=== PATIENT | male | born 1965 | race Caucasian/White ===

== ENCOUNTER 2017-05-13 10:28 | Outpatient (CLI) ==
--- NOTE | 2017-05-13 11:26 | DI ---
EXAM: CHEST FRONTAL AND LATERAL VIEWS HISTORY: Bronchitis. COMPARISON: 08/08/2008 FINDINGS: Heart size remains normal. Mild hyperinflation. No acute infiltrates are seen. No vascul ar congestion. There is no consolidation, visible pleural fluid or pneumothorax. Bones reveal no acu te fracture. IMPRESSION: No acute cardiopulmonary process.
== END 2017-05-13 10:29 | disposition home or self-care (01) ==
LOC: RAD 10:28
PROVIDERS: ATTEND Family Medicine
DX: J40 Bronchitis, not specified as acute or chronic (principal); R91.1 Solitary pulmonary nodule

== ENCOUNTER 2017-08-25 08:15 | Outpatient (RCR) ==
--- NOTE | 2017-08-07 08:30 | RS.OPPTEV2 ---
Date of Note: 08/06/17 Visit #: 1 Date of Evaluation: 08/06/17 Payer Source: Insurance Surgery Performed?: Yes (R Rot cuff repair 06/04/17) Treatment Diagnosis: s/p rotator cuff repair with subacromial decompression History of Condition/Mechanism of Injury:: pt with degenerative rotator cuff tear s/p rotator cuff repair on 06/04/17 Prior Level of Function.....Patient was independent with: ADL's, Self Care, Work /Vocation, Ambulation/Mobility, Community Integration/Access Functional Limitations: Reaching, Pushing, Pulling, Lifting, Carrying Current Subjective/complaints:: pt states that he has been using his arm and lifting. Advised pt that he should not be lifting until MD approves. pt states he wants to get back to work as soon as possible. Treatment Side (optional): Right *Precautions: no lifting Medical History Medical History Comments:: back pain, anxiety Smoking Status: Unknown if ever smoked (pt uses smokeless tobacco) Hx Home Medications: hydrocodone, diclofenac Patient's Goals: return to work Pain Assessment - Pain Description Pain Location: R shld Pain Description: Throbbing, Aching Current Pain Intensity: 7/10 Worst Pain Intensity: 9/10 with ex Functional Outcome Measure UE Functional Index: 52 (35%) - G Codes & Severity Modifier G Codes & Modifier: n/a Source of G Code score: n/a Observation - Observation Posture: Forward Head, Rounded Shoulders Gait - Gait Pattern General Gait Pattern Observation: No Deviations/Normal General Range of Motion: BLE and LUE WFL's Muscle Strength: BLE 5/5. LUE 5/5. RUE elbow flex/ext atleast 3/5 as noted by ROM, Shoulder ROM: Left WFL's Shoulder Muscle Strength: Left WFL's - Right Shoulder ROM Right Shoulder Flexion: 100 Right Shoulder Abduction: 70 Right Shoulder External Rotation: 25 Right Shoulder ROM Limitations: Soft Tissue Tightness, Muscle Weakness, Pain - Right Shoulder Strength Right Shoulder Flexion: 3- Fair- Right Shoulder Extension: 3 Fair Right Shoulder Abduction: 3- Fair- Right Shoulder Adduction: 3- Fair- Right Shoulder External Rotation: 2+ Poor+ Palpation Palpation Findings: Tenderness (R shld), Muscle Guarding Sensation - Sensation Right Upper Extremity: Intact/Normal Left Upper Extremity: Intact/Normal Right Lower Extremity: Intact/Normal Left Lower Extremity: Intact/Normal Balance - Sitting Balance Static Sitting Balance: Normal Dynamic Sitting Balance: Normal - Standing Balance Static Standing Balance: Normal Dynamic Standing Balance: Normal - Heat/Cryotherapy Treatment: Cryotherapy Comments:: R shld Interventions - Exercise/Activities/Manual Therapy Exercises/Activities: pt performed pendulum ex, isometric flex, ext , abd, add x 5 reps. pt received AAROM R shld flex, abd, ER within pain free range Manual Therapy: n/a HOME EXERCISE PROGRAM: pt given written HEP including pendulum ex, isometric flex, ext, abd, add as well as AAROM shld flex - Charges Timed Code Treatment Minutes: 45 Total Treatment Time: 60 Procedures billed for this date of service:: eval low cold pack EVALUATION COMPLEXITY LEVEL EVALUATION COMPLEXITY LEVEL: HISTORY: Low (s/p rot cuff repair), EXAM OF BODY SYSTEMS: Medium (ROM, strength, pain), CLINICAL PRESENTATION: Medium, CLINICAL DECISION MAKING: Medium Assessment Assessment: pt presents with decreased R shld ROM and strength s/p rotator cuff repair approx 8 weeks ago. pt also continues with pain. pt has been using RUE to lift heavy objects and has not been doing any previous ex. Patient Education: Education of diagnosis, Home Exercise Program, Education of Plan of Care Rehab Potential: Good Problems/Comments: Instructed pt that per MD protocol he should not be lifting any heavy objects due to chance of disrupting rot cuff repair. Educated pt on healing process and protocol ex. Short Term Goals Goal #1: AAROM R shld flex 110 abd 85 Goal to be met by: 08/27/17 Goal #2: pt rate pain < 6/10 with activity Goal to be met by: 08/27/17 Spa Consultant Goals Goal #1: ROM R shld flex 150 abd 100 Goal to be met by: 09/17/17 Goal #2: pt rate pain <4/10 with activity Goal to be met by: 09/17/17 Goal #3: pt UE functional index score 65 Goal to be met by: 09/17/17 Goal #4: independent with HEP Goal to be met by: 09/17/17 Plan - Treatment to be Provided Procedures: Therapeutic Exercises, Therapeutic Activity, Manual Therapy, Patient Education Modalities: Electrical Stimulation, Ultrasound/Phonophoresis, Class IV Laser, Cryotherapy, Hot Packs - Treatment Plan Frequency: 2 X week Duration: 6 weeks ORDER # VISITS AND/OR THROUGH DATE: 09/17/17 - Treatment Code (1) S/P rotator cuff repair Code(s): Z98.89 - OTHER SPECIFIED POSTPROCEDURAL STATES * DO NOT USE * Comments: s/p R rotator cuff repair with subacromial decompression (2) Pain in joint, shoulder region Code(s): M25.519 - PAIN IN UNSPECIFIED SHOULDER Qualifiers: Laterality: right Qualified Code(s): M25.511 - Pain in right shoulder (3) Muscle weakness Code(s): M62.81 - MUSCLE WEAKNESS (GENERALIZED)
--- NOTE | 2017-08-08 14:06 | RS.OPPTDN ---
Subjective Date of Note: 08/08/17 Visit #: 2 Date of Evaluation: 08/06/17 Payer Source: Insurance Treatment Diagnosis: s/p rotator cuff repair with subacromial decompression Current Subjective/complaints:: Patient reports discomfort most of the time at the superior right shoulder joint and the mid upper arm. *Precautions: no lifting Pain Assessment - Pain Description Pain Location: Right superior shoulder joint and mid upper arm. Pain Description: Aching Current Pain Intensity: 6/10 - Treatment Modality: Ultrasound Parameters/Method Applied: [id number] at 1.5w/cm2 to the right shoulder joint and mid upper arm following exercise. Patient Position: Sitting - Heat/Cryotherapy Treatment: Cryotherapy ([id number] Ended with CP to right shoulder. Patient in sitting. ) Interventions - Exercise/Activities/Manual Therapy Exercises/Activities: PROM to right shoulder all direction in supine. Clasped hands for overhead flexion. Isometric shoulder flex, ext, abd, add, IR, ER, biceps and triceps. In sitting, isometrics and AA flexion, scap and short abd. Reviewed pendulum ex, and started self stretch flexion table slides. Extensive patient education of dx, joint mechanics, and safety precautions. Total minutes of Exercise: 42mins Manual Therapy: n/a HOME EXERCISE PROGRAM: pt given written HEP including pendulum ex, isometric flex, ext, abd, add as well as AAROM shld flex - Objective Findings Observations,measurements,etc.: Patients passive right shoulder flexion limited to approx 110 degrees and increased to approx 140 degrees following exercise. - Charges Timed Code Treatment Minutes: 54mins Total Treatment Time: 64mins Procedures billed for this date of service:: US, EX3 Assessment: Patient responded to treatment with an increase in PROM and seems to be motivated to work on HEP. Patient Education: Education of diagnosis, Body/Joint mechanics, Home Exercise Program, Home Safety, Activity Modification Patient demonstrates compliance with HEP?: Yes Short Term Goals Goal #1: AAROM R shld flex 110 abd 85 Goal to be met by: 08/27/17 Goal #2: pt rate pain < 6/10 with activity Goal to be met by: 08/27/17 Long-Term Goals Goal #1: ROM R shld flex 150 abd 100 Goal to be met by: 09/17/17 Progress towards goal: Progressing Goal #2: pt rate pain <4/10 with activity Goal to be met by: 09/17/17 Goal #3: pt UE functional index score 65 Goal to be met by: 09/17/17 Goal #4: independent with HEP Goal to be met by: 09/17/17 Progress towards goal: Progressing Plan PLAN OF CARE EXPIRES ON:: 09/17/17 ORDER # VISITS AND/OR THROUGH DATE: 09/17/17 PLAN: Progress exercise to increase ROM and gentle strengthening per protocol.
--- NOTE | 2017-08-13 10:28 | RS.OPPTDN ---
Subjective Date of Note: 08/13/17 Visit #: 3 Date of Evaluation: 08/06/17 Payer Source: Insurance Treatment Diagnosis: s/p rotator cuff repair with subacromial decompression Current Subjective/complaints:: Patient reports only mild increase in soreness following last exercise session. Reports he has had more discomfort the last few days, but may be over-doing activities at home. *Precautions: no lifting Pain Assessment - Pain Description Pain Location: Right shoulder and laterall upper arm Current Pain Intensity: 6-7/10 - Treatment Modality: Ultrasound Parameters/Method Applied: [id number] at 1.5w/cm2 to the right shoulder joint and upper arm following EX. patient in sitting. Patient Position: Sitting - Heat/Cryotherapy Treatment: Cryotherapy ([id number] to the right shoulder joint following EX and US. Patient in sitting. ) Interventions - Exercise/Activities/Manual Therapy Exercises/Activities: PROM to right shoulder all direction in supine. Isometric shoulder flex, ext, abd, add, IR, ER, biceps and triceps, multiple reps with UE at side. With right shoulder at 80 degrees abduction, isometric IR and ER. Clasped hands for limited AA flexion. AA shoulder/serratus punches. In sitting, isometrics and scapular retraction. AA right shoulder flexion limited to approx 90 degrees. Reviewed HEP including wall walking and self stretching in safe positions. Reviewed all patient education of dx, joint mechanics, and safety precautions. Total minutes of Exercise: 40mins Manual Therapy: n/a HOME EXERCISE PROGRAM: pt given written HEP including pendulum ex, isometric flex, ext, abd, add as well as AAROM shld flex - Objective Findings Observations,measurements,etc.: AA flexion in sitting to 90 degrees before elevating shoulder girdle. - Charges Timed Code Treatment Minutes: 52mins Total Treatment Time: 62mins Procedures billed for this date of service:: EX3, US Assessment: Patient able to tolerate increased PROM today. He is motivated to progress with HEP. Patient Education: Education of diagnosis, Body/Joint mechanics, Home Exercise Program, Home Safety, Activity Modification Comments: Reviewed again home safety and precautions for right shoulder. Patient demonstrates compliance with HEP?: Yes Short Term Goals Goal #1: AAROM R shld flex 110 abd 85 Goal to be met by: 08/27/17 Progress towards Goal:: Progressing Goal #2: pt rate pain < 6/10 with activity Goal to be met by: 08/27/17 Penitentiary Goals Goal #1: ROM R shld flex 150 abd 100 Goal to be met by: 09/17/17 Progress towards goal: Progressing Goal #2: pt rate pain <4/10 with activity Goal to be met by: 09/17/17 Goal #3: pt UE functional index score 65 Goal to be met by: 09/17/17 Goal #4: independent with HEP Goal to be met by: 09/17/17 Progress towards goal: Progressing Plan PLAN OF CARE EXPIRES ON:: 09/17/17 ORDER # VISITS AND/OR THROUGH DATE: 09/17/17 PLAN: Progress PROM and AA exercise to increase motion of the right shoulder joint.
--- NOTE | 2017-08-15 09:45 | RS.OPPTDN ---
Subjective Date of Note: 08/15/17 Visit #: 4 Date of Evaluation: 08/06/17 Payer Source: Insurance Treatment Diagnosis: s/p rotator cuff repair with subacromial decompression Current Subjective/complaints:: Patient reports improved moblity of the right shoulder joint this morning. States he is working on HEP. *Precautions: no lifting Pain Assessment - Pain Description Pain Location: Right shoulder Current Pain Intensity: moderate - Treatment Modality: Ultrasound Parameters/Method Applied: [id number] at 1.5w/cm2 to the right shoulder joint and upper arm. Patient Position: Sitting Interventions - Exercise/Activities/Manual Therapy Exercises/Activities: PROM to right shoulder all direction in supine. Isometric shoulder flex, ext, abd, add, IR, ER, biceps and triceps, multiple reps with UE at side. With right shoulder at 90 degrees flexion, isometric extension. Yellow theraband for short IR and ER. Yellow theraband for resisted wand shoulder extension and chest press. Added 3# to shoulder/serratus punches. In sitting, isometrics and scapular retraction. Wand for shoulder flexion limited to approx 90 degrees. Wall walking and self stretching at [employer]. Began overhead shoulder pulleys. Reviewed all patient education of dx, joint mechanics, and safety precautions. Total minutes of Exercise: 42mins Manual Therapy: n/a HOME EXERCISE PROGRAM: pt given written HEP including pendulum ex, isometric flex, ext, abd, add as well as AAROM shld flex - Charges Timed Code Treatment Minutes: 54mins Total Treatment Time: 55mins Procedures billed for this date of service:: EX3, US Assessment: Pateint progressing with PROM, AAROM, and light resistive exercise. Patient Education: Home Exercise Program Comments: Discussed shoulder pulleys and patient is planning to set them up at home. Patient demonstrates compliance with HEP?: Yes Short Term Goals Goal #1: AAROM R shld flex 110 abd 85 Goal to be met by: 08/27/17 Progress towards Goal:: Progressing Goal #2: pt rate pain < 6/10 with activity Goal to be met by: 08/27/17 Progress towards Goal:: Progressing Cook Vacuum Kettle Goals Goal #1: ROM R shld flex 150 abd 100 Goal to be met by: 09/17/17 Progress towards goal: Progressing Goal #2: pt rate pain <4/10 with activity Goal to be met by: 09/17/17 Goal #3: pt UE functional index score 65 Goal to be met by: 09/17/17 Goal #4: independent with HEP Goal to be met by: 09/17/17 Progress towards goal: Progressing Plan PLAN OF CARE EXPIRES ON:: 08/20/17 ORDER # VISITS AND/OR THROUGH DATE: 09/17/17 PLAN: Progress with ROM and gentle strengthening.
--- NOTE | 2017-08-20 13:58 | RS.OPPTDN ---
Subjective Date of Note: 08/20/17 Visit #: 5 Date of Evaluation: 08/06/17 Payer Source: Insurance Treatment Diagnosis: s/p rotator cuff repair with subacromial decompression Current Subjective/complaints:: Reports he is seeing improvement in ROM. Reports using right UE more at low level with elbow at side. Reports no lifting. *Precautions: no lifting Pain Assessment - Pain Description Pain Location: Right shoulder joint Current Pain Intensity: mild to mod - Treatment Modality: Ultrasound Parameters/Method Applied: [id number] at 1.5w/cm2 to the right shoulder joint and upper arm prior to EX today. Patient sitting. Patient Position: Sitting Interventions - Exercise/Activities/Manual Therapy Exercises/Activities: PROM to right shoulder all direction in supine. Isometric shoulder flex, ext, abd, add, IR, ER, biceps and triceps, multiple reps with UE at side. Right shoulder IR and ER with shoulder at differnet angles of abduction. 3# for serratus press. 1# and 2# dumbells for shoulder range flex/ ext. Yellow theraband for short IR and ER. Increased to red theraband for resisted right shoulder flexion anbd extension. In sitting, isometrics. Wand with red theraband for scapular retraction. Increased to 3# wand for shoulder flexion limited to approx 90 degrees. Ended with AAROM into flexion, scaption, and limited abduction. Discussed HEP and overhead shoulder pulleys. Reviewed all patient education of dx, joint mechanics, and safety precautions. Total minutes of Exercise: 45mins Manual Therapy: n/a HOME EXERCISE PROGRAM: pt given written HEP including pendulum ex, isometric flex, ext, abd, add as well as AAROM shld flex - Objective Findings Observations,measurements,etc.: Patient with passive flexion approx 150 degrees. Active right shoulder flexion 100 degrees (limited to one attempt for measurement). - Charges Timed Code Treatment Minutes: 55mins Total Treatment Time: 55mins Procedures billed for this date of service:: US, EX3 Assessment: Patient reporting consistent progress with motion and with pain reduction. Patient Education: Body/Joint mechanics, Home Exercise Program, Activity Modification Patient demonstrates compliance with HEP?: Yes Short Term Goals Goal #1: AAROM R shld flex 110 abd 85 Goal to be met by: 08/27/17 Progress towards Goal:: Progressing Goal #2: pt rate pain < 6/10 with activity Goal to be met by: 08/27/17 Progress towards Goal:: Progressing Universal Grinder Tool Goals Goal #1: ROM R shld flex 150 abd 100 Goal to be met by: 09/17/17 Progress towards goal: Progressing Goal #2: pt rate pain <4/10 with activity Goal to be met by: 09/17/17 Progress towards goal: Progressing Goal #3: pt UE functional index score 65 Goal to be met by: 09/17/17 Goal #4: independent with HEP Goal to be met by: 09/17/17 Progress towards goal: Progressing Plan PLAN OF CARE EXPIRES ON:: 09/17/17 ORDER # VISITS AND/OR THROUGH DATE: 09/17/17 PLAN: Continue with progression of exercise for ROM and gentle strengthening.
--- NOTE | 2017-08-22 11:19 | RS.OPPTDN ---
Subjective Date of Note: 08/22/17 Visit #: 6 Date of Evaluation: 08/06/17 Payer Source: Insurance Treatment Diagnosis: s/p rotator cuff repair with subacromial decompression Current Subjective/complaints:: Patient reports improvement in mobility and active motion below shoulder height. States he has set-up shoulder pulleys. *Precautions: no lifting Pain Assessment - Pain Description Pain Location: Right shoulder Pain Description: Aching Current Pain Intensity: mild to mod Other Comments regarding Pain:: Patient reports discomfort mainly at the anterior shoulder joint today. - Treatment Modality: Ultrasound Parameters/Method Applied: [id number] at 1.5w/cm2 to the right shoulder joint and along the biceps. Patient Position: Sitting Interventions - Exercise/Activities/Manual Therapy Exercises/Activities: PROM to right shoulder all direction in supine. Isometric shoulder flex, ext, abd, add, IR, ER, biceps and triceps, multiple reps with UE at side. Right shoulder IR and ER with shoulder at differnet angles of abduction. 3# for serratus press. 2# dumbells for shoulder short range flex and 1# for flex/ext from 70 to 90 degrees. Red theraband for short shoulder IR, ER, flexion, ext, serratus press, chest press, biceps, and triceps. In sitting, isometrics. 3# wand for flexion to shoulder height. Ended with Active and AAROM into flexion, scaption, and limited abduction. Discussed HEP, overhead shoulder pulleys, and safety with daily activities. Total minutes of Exercise: 42mins Manual Therapy: n/a HOME EXERCISE PROGRAM: pt given written HEP including pendulum ex, isometric flex, ext, abd, add as well as AAROM shld flex - Objective Findings Observations,measurements,etc.: Patient demos right shoulder flexion to approx 120-125 degrees with good stabiliztation of the scapula. AA flexion to 150 degrees. - Charges Timed Code Treatment Minutes: 54mins Total Treatment Time: 54mins Procedures billed for this date of service:: US, EX3 Assessment: Patient progressing with AROM in sitting. Patient Education: Body/Joint mechanics, Home Exercise Program, Activity Modification Patient demonstrates compliance with HEP?: Yes Short Term Goals Goal #1: AAROM R shld flex 110 abd 85 Goal to be met by: 08/27/17 Progress towards Goal:: Met Goal #2: pt rate pain < 6/10 with activity Goal to be met by: 08/27/17 Progress towards Goal:: Partially Met Contracts Analyst Goals Goal #1: ROM R shld flex 150 abd 100 Goal to be met by: 09/17/17 Progress towards goal: Progressing Goal #2: pt rate pain <4/10 with activity Goal to be met by: 09/17/17 Progress towards goal: Progressing Goal #3: pt UE functional index score 65 Goal to be met by: 09/17/17 Goal #4: independent with HEP Goal to be met by: 09/17/17 Progress towards goal: Partially Met (Independent with current HEP.) Plan PLAN OF CARE EXPIRES ON:: 09/17/17 ORDER # VISITS AND/OR THROUGH DATE: 09/17/17 PLAN: Progress per protocol.
--- NOTE | 2017-08-25 10:39 | RS.OPPTDN ---
Subjective Date of Note: 08/25/17 Visit #: 7 Date of Evaluation: 08/06/17 Payer Source: Insurance Treatment Diagnosis: s/p rotator cuff repair with subacromial decompression Current Subjective/complaints:: Patient reports increased soreness over weekend , but overall he continues to see improvement in moblity of the right shoulder joint. *Precautions: no lifting Pain Assessment - Pain Description Pain Location: Right shoulder and upper arm Pain Description: Aching Current Pain Intensity: mild - Treatment Modality: Ultrasound Parameters/Method Applied: [id number] at 1.5w/cm2 to the right [place] joint and upper arm prior to EX. Patient Position: Sitting Interventions - Exercise/Activities/Manual Therapy Exercises/Activities: PROM to right shoulder all direction in supine. Isometric shoulder flex, ext, abd, add, IR, ER, biceps and triceps, multiple reps with UE at side. Right shoulder IR and ER with shoulder at different angles of abduction. 3# for serratus press. Increased to 3# dumbells for shoulder short range flex. Red theraband for short shoulder IR, ER, flexion, ext, serratus press, chest press, biceps, and triceps. In standing, cuff series with 3#, 3 directions. In sitting, isometrics. 3# wand for flexion to shoulder height. Ended with Active and AAROM into flexion, scaption, and limited abduction. Isometric right shoulder extension. Discussed HEP, overhead shoulder pulleys, and safety with daily activities. Total minutes of Exercise: 44mins Manual Therapy: n/a HOME EXERCISE PROGRAM: pt given written HEP including pendulum ex, isometric flex, ext, abd, add as well as AAROM shld flex - Charges Timed Code Treatment Minutes: 54mins Total Treatment Time: 54mins Procedures billed for this date of service:: US, EX3 Assessment: Patient progressing with ROM and gentle strengthening. Patient Education: Home Exercise Program, Home Safety, Activity Modification Patient demonstrates compliance with HEP?: Yes Short Term Goals Goal #1: AAROM R shld flex 110 abd 85 Goal to be met by: 08/27/17 Progress towards Goal:: Met Goal #2: pt rate pain < 6/10 with activity Goal to be met by: 08/27/17 Progress towards Goal:: Partially Met Manager Of Sales Goals Goal #1: ROM R shld flex 150 abd 100 Goal to be met by: 09/17/17 Progress towards goal: Progressing Goal #2: pt rate pain <4/10 with activity Goal to be met by: 09/17/17 Progress towards goal: Progressing Goal #3: pt UE functional index score 65 Goal to be met by: 09/17/17 Goal #4: independent with HEP Goal to be met by: 09/17/17 Progress towards goal: Partially Met (Independent with current HEP.) Plan PLAN OF CARE EXPIRES ON:: 09/17/17 ORDER # VISITS AND/OR THROUGH DATE: 09/17/17 PLAN: Progress with ROM and strengtheing of the right UE.
== END 2017-08-27 ==
PROVIDERS: ATTEND Orthopaedic Surgery
DX: Z47.89 Encounter for other orthopedic aftercare (principal); M25.511 Pain in right shoulder; M62.81 Muscle weakness (generalized)

== ENCOUNTER 2017-09-03 08:15 | Outpatient (RCR) ==
--- NOTE | 2017-08-28 10:00 | RS.OPPTDN ---
Subjective Date of Note: 08/28/17 Visit #: 8 Date of Evaluation: 08/06/17 Payer Source: Insurance Treatment Diagnosis: s/p rotator cuff repair with subacromial decompression Current Subjective/complaints:: Reports pain in left shoulder increases with activity, but on average he has only mild discomfort. *Precautions: no lifting Pain Assessment - Pain Description Pain Location: Right shoulder Pain Description: Throbbing, Aching Current Pain Intensity: 7-8/10 with increased exercise, 2/10 with light ADL's Other Comments regarding Pain:: Reports pain increases with PROM and strengthening exercise but feels better after therapy. Interventions - Exercise/Activities/Manual Therapy Exercises/Activities: PROM to right shoulder all direction in supine. Isometric shoulder flex, ext, abd, add, IR, ER, biceps and triceps, multiple reps with UE at side. Increased to 6# wand for chest press and short range overhead flexion. Red theraband for short shoulder IR, ER, flexion, ext, serratus press, chest press, biceps, and triceps. Red theraband for bilateral shoulder ER. In sitting , isometrics shoulder flex, ext, abd, add, IR, and ER. 3# wand for flexion to shoulder height. Active and AAROM into flexion, scaption, and abduction. 1# dumbell for flexion and scaption to shoulder height, sets of 5reps. Red theraband for scap retraction with 3# wand, 25reps. Total minutes of Exercise: 35mins Manual Therapy: n/a HOME EXERCISE PROGRAM: pt given written HEP including pendulum ex, isometric flex, ext, abd, add as well as AAROM shld flex - Charges Timed Code Treatment Minutes: 35mins Total Treatment Time: 38mins Procedures billed for this date of service:: EX2 Assessment: Progressing with AROM and light resistive exercise. Patient Education: Body/Joint mechanics, Home Exercise Program, Activity Modification Patient demonstrates compliance with HEP?: Yes Short Term Goals Goal #1: AAROM R shld flex 110 abd 85 Goal to be met by: 08/27/17 Progress towards Goal:: Met Goal #2: pt rate pain < 6/10 with activity Goal to be met by: 08/27/17 Progress towards Goal:: Partially Met Cash Clerk Goals Goal #1: ROM R shld flex 150 abd 100 Goal to be met by: 09/17/17 Progress towards goal: Partially Met Goal #2: pt rate pain <4/10 with activity Goal to be met by: 09/17/17 Progress towards goal: Progressing Goal #3: pt UE functional index score 65 Goal to be met by: 09/17/17 Goal #4: independent with HEP Goal to be met by: 09/17/17 Progress towards goal: Met (Independent with current HEP.) Plan PLAN OF CARE EXPIRES ON:: 09/17/17 ORDER # VISITS AND/OR THROUGH DATE: 09/17/17 PLAN: Progress ROM and strengthening to increase patients functional activities and start preparing for return to work.
--- NOTE | 2017-09-03 11:53 | RS.OPPTDN ---
Subjective Date of Note: 09/03/17 Visit #: 9 Date of Evaluation: 08/06/17 Payer Source: Insurance Treatment Diagnosis: s/p rotator cuff repair with subacromial decompression Current Subjective/complaints:: Patient reports he has noticed slow but steady improvement in ablity to use the right UE with light daily activities. Pain Assessment - Pain Description Pain Location: Right shoulder and upper arm Pain Description: Aching Current Pain Intensity: mild to mod Other Comments regarding Pain:: Pain reports some increased discomfort with resistive exercise, but resolves with rest. Interventions - Exercise/Activities/Manual Therapy Exercises/Activities: PROM to right shoulder all direction in supine. Isometric shoulder flex, ext, abd, add, IR, ER, biceps and triceps, multiple reps with UE at side. 6# wand for chest press and short range overhead flexion. 2# dumbell for scaption and chest press. Red theraband for short shoulder IR, ER, flexion, ext, serratus press, chest press, biceps, and triceps. Red theraband for bilateral shoulder ER. In sitting, isometrics shoulder flex, ext, abd, add, IR, and ER. 3# wand for flexion to shoulder height. Active and AAROM into flexion, scaption, and abduction. 1# dumbell for flexion and scaption to shoulder height , sets of 5reps. Right shoulder PNF patterns, no weight, limited range. Ended with passive end range stretching and doorway anterior chest stretch 3 positions. Total minutes of Exercise: 42 Manual Therapy: n/a HOME EXERCISE PROGRAM: pt given written HEP including pendulum ex, isometric flex, ext, abd, add as well as AAROM shld flex - Charges Timed Code Treatment Minutes: 42mins Total Treatment Time: 45mins Procedures billed for this date of service:: EX3 Assessment: Patient continues to make consistent improvement with AROM and with reports of increased light ADL's at home. Patient Education: Body/Joint mechanics, Home Exercise Program, Home Safety, Activity Modification Patient demonstrates compliance with HEP?: Yes Short Term Goals Goal #1: AAROM R shld flex 110 abd 85 Goal to be met by: 08/27/17 Progress towards Goal:: Met Goal #2: pt rate pain < 6/10 with activity Goal to be met by: 08/27/17 Progress towards Goal:: Partially Met Shelter Goals Goal #1: ROM R shld flex 150 abd 100 Goal to be met by: 09/17/17 Progress towards goal: Partially Met Goal #2: pt rate pain <4/10 with activity Goal to be met by: 09/17/17 Progress towards goal: Progressing Goal #3: pt UE functional index score 65 Goal to be met by: 09/17/17 Goal #4: independent with HEP Goal to be met by: 09/17/17 Progress towards goal: Met (Independent with current HEP.) Plan PLAN OF CARE EXPIRES ON:: 09/17/17 ORDER # VISITS AND/OR THROUGH DATE: 09/17/17 PLAN: Progress with AROM and light strengthening of the right UE to increase patients functional activity level.
== END 2017-09-27 ==
PROVIDERS: ATTEND Orthopaedic Surgery
DX: Z98.890 Other specified postprocedural states (principal); M25.511 Pain in right shoulder